=== PATIENT | male | born 1985 | race American Indian/Alaskan Native ===

== ENCOUNTER 2017-08-27 09:46 | Emergency (ER) | payer OTHER ==
[2017-08-27 09:54] VITALS: BP 166/72
--- NOTE | 2017-08-27 10:20 | XRay Report ---
LEFT FOOT THREE VIEWS: 08/27/17 09:54:00 CLINICAL: Pain and swelling. FINDINGS: No fracture or dislocation. Normal soft tissues. No soft tissue air or foreign body. IMPRESSION: Normal.
[2017-08-27] MEDS ORDERED: MOTRIN PO ONE (14:37)
--- NOTE | 2017-08-27 14:38 | Emergency Department Report ---
ED Lower Extremity HPI - General Chief Complaint: Extremity Problem,Nontraumatic Stated Complaint: LEFT FOOT PAIN Time Seen by Provider: 08/27/17 14:15 Source: patient Mode of arrival: Ambulatory Limitations: No Limitations - History of Present Illness Initial Comments: This is a 32-year-old nontoxic, well nourished in appearance, no acute signs of distress presents to the ED with c/o of left foot pain x1 pain. Patient denies any trauma to the region. Patient describes pain as aching with level of 8/10. Patient denies any numbness, tingling, fever, chills, headache, nausea, vomiting , chest pain, shortness of breathe. Patient describes pain as aching with level of 8/10. Patient deneis any allergies or PMH. Patient stated that he walks about 10-12 hours a day for [employer]. MD Complaint: foot injury -: days(s) (1) Injury: Foot: Left Place: home Severity: mild Severity scale (0 -10): 8 Improves With: nothing Worsens With: nothing Associated Symptoms: ambulatory. denies: snap/pop sensation, swelling, numbness , tingling, unable to bear weight, able to partially bear weight - Related Data Previous Rx's Medication Instructions Recorded Last Taken Type Naproxen [Naprosyn] 500 mg PO BID PRN #20 tablet 01/20/16 Unknown Rx predniSONE [Deltasone] 40 mg PO QDAY #5 tab 08/27/17 Unknown Rx traMADol [Ultram] 50 mg PO Q6HR PRN #12 tablet 08/27/17 Unknown Rx Allergies Allergy/AdvReac Type Severity Reaction Status Date / Time No Known Allergies Allergy Unverified 01/20/16 07:15 ED Review of Systems ROS: Stated complaint: LEFT FOOT PAIN Other details as noted in HPI Constitutional: denies: chills, fever Eyes: denies: eye pain, eye discharge, vision change ENT: denies: ear pain, throat pain Respiratory: denies: cough, shortness of breath, wheezing Cardiovascular: denies: chest pain, palpitations Endocrine: no symptoms reported Gastrointestinal: denies: abdominal pain, nausea, diarrhea Genitourinary: denies: urgency, dysuria Musculoskeletal: arthralgia. denies: back pain, joint swelling Skin: denies: rash, lesions Neurological: denies: headache, weakness, paresthesias Psychiatric: denies: anxiety, depression Hematological/Lymphatic: denies: easy bleeding, easy bruising ED Past Medical Hx - Social History Smoking Status: Never Smoker Substance Use Type: None - Medications Home Medications: Home Medications Medication Instructions Recorded Confirmed Last Taken Type Naproxen [Naprosyn] 500 mg PO BID PRN #20 tablet 01/20/16 Unknown Rx predniSONE [Deltasone] 40 mg PO QDAY #5 tab 08/27/17 Unknown Rx traMADol [Ultram] 50 mg PO Q6HR PRN #12 tablet 08/27/17 Unknown Rx ED Physical Exam - General Limitations: No Limitations General appearance: alert, in no apparent distress - Head Head exam: Present: atraumatic, normocephalic - Eye Eye exam: Present: normal appearance, PERRL, EOMI Pupils: Present: normal accommodation - ENT ENT exam: Present: normal exam, normal orophraynx, mucous membranes moist, TM's normal bilaterally, normal external ear exam - Neck Neck exam: Present: normal inspection, full ROM. Absent: tenderness, meningismus, lymphadenopathy, thyromegaly - Respiratory Respiratory exam: Present: normal lung sounds bilaterally. Absent: respiratory distress, wheezes, rales, rhonchi, stridor, chest wall tenderness, accessory muscle use, decreased breath sounds, prolonged expiratory - Cardiovascular Cardiovascular Exam: Present: regular rate, normal rhythm, normal heart sounds. Absent: bradycardia, tachycardia, irregular rhythm, systolic murmur, diastolic murmur, rubs, gallop - GI/Abdominal GI/Abdominal exam: Present: soft, normal bowel sounds. Absent: distended, tenderness, guarding, rebound, rigid, diminished bowel sounds - Rectal Rectal exam: Present: deferred - Extremities Exam Extremities exam: Present: normal inspection, full ROM, tenderness, normal capillary refill. Absent: pedal edema, joint swelling, calf tenderness - Expanded Lower Extremity Exam Left Hip exam: Present: normal inspection, full ROM Upper Leg exam: Present: normal inspection, full ROM Knee exam: Present: normal inspection, full ROM Lower Leg exam: Present: normal inspection, full ROM Ankle exam: Present: normal inspection, full ROM Foot/Toe exam: Present: normal inspection, full ROM, tenderness (plantar foot region). Absent: swelling, abrasion, laceration, ecchymosis, deformity, crepidus, dislocation, erythema, amputation, puncture wound, foreign body, calcaneal tenderness, tenderness at base of 5th metatarsal, nail avulsion, subungual hematoma Neuro vascular tendon exam: Present: no vascular compromise. Absent: pulse deficit, abnormal cap refill, motor deficit, sensory deficit, tendon deficit, extremity cold to touch, pallor, abnormal 2-point discrimination, decreased fine /light touch, foot drop, peroneal nerve deficit, significant pain with passive ROM of distal joint Gait: Positive: observed and normal 1 - Pain - Back Exam Back exam: Present: normal inspection, full ROM. Absent: tenderness, CVA tenderness (R), CVA tenderness (L), muscle spasm, paraspinal tenderness, vertebral tenderness, rash noted - Neurological Exam Neurological exam: Present: alert, oriented X3, CN II-XII intact, normal gait, reflexes normal - Psychiatric Psychiatric exam: Present: normal affect, normal mood - Skin Skin exam: Present: warm, dry, intact, normal color. Absent: rash ED Course Vital Signs 08/27/17 09:49 Temperature 98.1 F Pulse Rate 89 Respiratory 15 Rate Blood Pressure 166/72 O2 Sat by Pulse 96 Oximetry - Reevaluation(s) Reevaluation #1: 08/27/17 14:40 Patient is speaking in full sentences with no signs of distress noted. ED Lower Extremity MDM - Medical Decision Making This is a 32-year-old male that presents with plantar fasciitis. Patient is stable and was examined me. X-ray has been obtained and dictated by radiologist within normal limits. Patient is notified of x-ray results with noted by the patient. Upon examination there is tenderness in the plantar fascia region. I'll treat patient with prednisone and Ultram. I instructed the patient not to operate any machinery while taking DUE TO DROWSINESS. PATIENT DID RECEIVED 800 MG BY MOUTH OF MOTRIN WHICH PATIENT STATES SYMPTOMS ARE IMPROVING AND THIS SUBSIDED. PATIENT WAS INSTRUCTED Follow-up with a primary care doctor in 3-5 days or if symptoms worsen and continue return to emergency room as soon as possible. At time time of discharge, the patient does not seem toxic or ill in appearance. No acute signs of distress noted. Patient agrees to discharge treatment plan of care. No further questions noted by the patient. Critical care attestation.: If time is entered above; I have spent that time in minutes in the direct care of this critically ill patient, excluding procedure time. ED Disposition Clinical Impression: Plantar fasciitis Disposition: [id number] TO HOME OR SELFCARE Is pt being admited?: No Does the pt Need Aspirin: No Condition: Stable Instructions: Plantar Fasciitis (ED), Prednisone (By mouth), Tramadol (By mouth ) Additional Instructions: Follow-up with a primary care doctor in 3-5 days or if symptoms worsen and continue return to emergency room as soon as possible. Prescriptions: predniSONE [Deltasone] 40 mg PO QDAY #5 tab traMADol [Ultram] 50 mg PO Q6HR PRN #12 tablet PRN Reason: Pain Referrals: PRIMARY CAREMD [Primary Care Provider] - 3-5 Days MILY TURPIN MD [Staff Physician] - 3-5 Days [facility] [Outside] - 3-5 Days [facility] [Outside] - 3-5 Days Forms: Work/School Release Form(ED)
== END 2017-08-27 14:54 | disposition home or self-care (01) ==
LOC: ED 09:46
DX: M72.2 Plantar fascial fibromatosis (principal)